=== PATIENT | male | born 1980 | race Caucasian/White ===

== ENCOUNTER 2016-10-31 11:48 | Observation (INO) | payer MEDICAID, OTHER ==
[2016-10-31] MEDS ORDERED: PANTOPRAZOLE SODIUM 80 MG in NORMAL SALINE 100 ML IV ONE (12:02)
[2016-10-31] MEDS ORDERED: RINGERS SOLUTION,LACTATED 1,000 ML IV PRN ×2 (12:02→14:00)
[2016-10-31] MEDS ORDERED: LORazepam 2 MG/ML DISP.SYRIN IV ONE (12:07)
--- NOTE | 2016-10-31 12:07 | ERNOTE ---
Medical Problem HPI - Narrative Date of Service: 10/31/16 - General Chief Complaint: Nausea/Vomiting Time Seen by Provider: 10/31/16 11:56 Source: patient Exam Limitations: clinical condition - Immun/Allergies/Home Medications Immunizations: IMMUNIZATION HX Immunizations Up to Date Yes History of Influenza Vaccine No Hx Pneumococcal Vaccination No Allergies/Adverse Reactions: Allergies No Known Allergies Allergy (Verified 10/31/16 11:59) Home Medications: HOME MEDICATIONS Omeprazole Magnesium [Prilosec Otc] 20 mg PO DAILY 10/31/16 [Last Taken Unknown] - History of Present History Narrative: For the last week, multiple times daily, he has been vomiting. Today, it was worse. He can't keep water on his stomach. One hour before coming to the [facility] ER by private car, he vomited gross blood with clots. He just had a grossly blood emesis now in the ER. He also complains of diffuse abdominal pain. He drinks 96 oz or so of hard tea every day. He was in this hospital in April of last year for EGD diagnosed gastritis. Timing: getting worse Severity: moderate Modifying Factors - (Improves): Present: other - nothing Modifying Factors - (Worsens): Present: eating, other - drinking Review of Systems - Review of Systems Constitutional: Present: weakness, malaise EYE: Present: no symptoms reported ENT: Present: no symptoms reported Respiratory: Present: no symptoms reported Cardiology: Present: no symptoms reported Gastrointestinal/Abdominal: Present: See HPI Genitourinary: Present: no symptoms reported Musculoskeletal: Present: no symptoms reported Skin: Present: no symptoms reported Neurological: Present: no symptoms reported Endocrine: Present: no symptoms reported Hematologic/Lymphatic: Present: no symptoms reported Psych: Present: no symptoms reported All Other Systems: All systems neg except as marked - Patient's Past Medical History Patient History - Medical: Alcohol Abuse, Anxiety, Other - gastritis Patient History - Cardiac/Respiratory: No pertinent hx Patient History - Cancer: No Hx of Cancer Patient History - Surgical Procedures: EGD - Family History Mother Family History - Medical: Anxiety Father Family History - Cardiac/Respiratory: Hypertension, Hyperlipidemia - Social History Living Situations: home Smoking Status: Current every day smoker Have you smoked in the past 12 months: Yes Alcohol Use: heavy Drug Use: marijuana Physical Exam - Physical Exam General Appearance: Present: wd/wn, mild distress, thin Eye Exam: Normal inspection: bilateral, PERRL: bilateral, EOMI: bilateral Ears, Nose, Throat: Present: normal ENT inspection, hearing grossly normal Neck: Present: normal inspection, nontender Respiratory: Present: no respiratory distress, lungs clear Cardiovascular/Chest: Present: regular rate, rhythm, no murmur, tachycardia Gastrointestinal/Abdominal: Present: normal bowel sounds, nondistended, soft, no organomegaly, tenderness - epigastrium Back Exam: Present: normal inspection, no CVA tenderness, no vertebral tenderness Extremity Exam: Present: normal inspection, no edema Neurological Exam: Present: alert, oriented, other - anxious Skin Exam: Present: normal color, warm/dry Lymphatic Exam: Present: no adenopathy ED Progress - Results and Orders Patient's Lab Results:: I have reviewed the patient's lab results. - Vital Signs Patient's Vital Signs:: I have reviewed the patient's vital signs. Vital Signs: Vital Signs 10/31/16 11:50 Temperature 35.7 C L Pulse Rate 117 H Respiratory 16 Rate Blood Pressure 98/76 O2 Sat by Pulse 100 Oximetry - EKG EKG read: Interp. by me - sinus tachycardia, LAFB - Progress/Reassessment Chief Complaint: Nausea/Vomiting Progress Note-Subjective: 10/31/16 16:01 We were unable to pass an NG tube down either nostril, there seems to be hard obstruction on either side, so we stopped attempting. We do have a Chavez catheter in place to monitor output. I did speak with Dr. Dumont by telephone , who is on-call for internal medicine, she agreed to admit this patient to an observation bed. Hourly spoke with Dr. Marley, our surgeon on-call, about this patient and will formally consult him now. 10/31/16 16:[address] Marley by phone just now, and he agreed to see the patient in consultation. Departure - Departure Clinical Impression: Upper GI bleeding, Alcohol abuse Disposition: [facility]
[2016-10-31 12:20] LABS: Hematocrit 33.7 % (42.0-52.0); Hemoglobin 11.6 gm/dL (13.5-18.0); Mean Cell Volume 98.5 fl (78-100); Mean Corpuscular Hemoglobin 33.9 pg (27-31); Mean Corpuscular Hgb Conc 34.4 g/dl (32-36); Mean Platelet Volume 9.7 fl (6.0-9.5); Neutrophil # 6.2 K/mm3 (1.3-6.0); Neutrophil % 66.1 % (42-75.0); Platelet Count 74 K/mm3 (150-450); Red Blood Count 3.42 M/mm3 (4.7-6.0); Red Cell Distribution Width 13.5 % (11.5-14.0); White Blood Count 9.4 K/mm3 (4.0-10.5)
[2016-10-31] MEDS ORDERED: LORazepam 2 MG/ML DISP.SYRIN ONE ×2 (12:21→15:57)
[2016-10-31] MEDS ORDERED: SUCRALFATE 1 G/10 ML UDC PO STA (12:21)
[2016-10-31 12:43] LABS: Albumin * 3.2 gm/dl (3.4-5.0); Anion Gap 27.4 mmol/L (6.8-13.8); BUN/Creatinine Ratio 6.9 (9.0-21.6); Bilirubin Direct 1.1 mg/dL (0.0-0.3); Bilirubin, Total 1.8 mg/dL (0.0-1.1); Bilirubin,Indirect 0.7 mg/dL (0.1-0.7); CKMB 0.5 ng/mL (0.0-9.0); Calcium * 8.4 mg/dL (7.9-10.9); Carbon Dioxide 19.3 mmol/L (24-32.6); Estimated Creat Clear 71.1; Potassium 3.7 mmol/L (3.4-4.6); Total Protein 6.5 gm/dL (6.2-8.2)
[2016-10-31 12:44] LABS: Troponin I 0.019 ng/ml (0.00-0.10)
[2016-10-31 12:57] LABS: INR 1.35 INR (0.90-1.10)
[2016-10-31] MEDS ORDERED: FAMOTIDINE 10 MG/ML VIAL IV ONE (14:15)
[2016-10-31] MEDS ORDERED: PHYTONADIONE (VIT K1) 10 MG/ML AMPUL IM ONE (14:49)
[2016-10-31 15:52] LABS: Cocaine Ur Negative (NEGATIVE); Urine Barbiturate Negative (NEGATIVE); Urine Benzodiazepines Negative (NEGATIVE); Urine Opiates Negative (NEGATIVE); Urine PCP Negative (NEGATIVE)
[2016-10-31 15:54] LABS: Urine Appearance Slightly Cloudy; Urine Blood 25 /ul (NEGATIVE); Urine Color Dark Yellow; Urine Protein 100 mg/dL (NEGATIVE); Urine THC Positive (NEGATIVE)
[2016-10-31 15:55] LABS: Urine Bilirubin 3 mg/dl (NEGATIVE); Urine Ketone 5 mg/dL (NEGATIVE); Urine Nitrite Negative (NEGATIVE); Urine RBC 0-5 /hpf (0-5); Urine Urobilinogen Normal (NORMAL); Urine WBC 0-5 /hpf (0-5)
[2016-10-31 15:56] LABS: Urine Bacteria 1+; Urine Mucus Few - 1+
[2016-10-31] MEDS ORDERED: LORazepam 2 MG/ML DISP.SYRIN IV PRN ×3 (16:23)
[2016-10-31] MEDS ORDERED: PANTOPRAZOLE SODIUM 40 MG in NORMAL SALINE 100 ML IV SCH ×2 (16:30→21:00)
[2016-10-31] MEDS ORDERED: DIPHTH,PERTUSS(ACELL),TET VAC 0.5 ML VIAL IM ONE (16:34)
[2016-10-31 16:35] LABS: Magnesium 1.3 mg/dL (1.2-2.8)
[2016-10-31] MEDS ORDERED: FAMOTIDINE IV SCH ×2 (17:00)
[2016-10-31] MEDS ORDERED: DEXTROSE 5% IV SCH ×2 (17:00)
[2016-10-31] MEDS ORDERED: WATER IV SCH ×2 (17:00)
[2016-10-31] MEDS ORDERED: FLU VACC QS2016-17 36MOS UP/PF 60 MCG/0.5 ML DISP.SYRIN IM ONE (17:29)
[2016-10-31] MEDS: ONDANSETRON HCL/PF 2 MG/ML VIAL IV PRN ×2 (18:00→18:01)
[2016-10-31] MEDS ORDERED: ONDANSETRON HCL/PF 2 MG/ML VIAL IV STA (18:24)
[2016-10-31] MEDS ORDERED: METOCLOPRAMIDE HCL 5 MG/ML VIAL IV STA (18:24)
[2016-10-31] MEDS ORDERED: MULTIVIT INFUSN,ADULT 4,VIT K 10 ML, THIAMINE HCL 100 MG in NORMAL SALINE 1,000 ML IV SCH (18:45)
[2016-10-31] MEDS ORDERED: MULTIVIT INFUSN,ADULT 4,VIT K 10 ML, THIAMINE HCL 100 MG in NORMAL SALINE 1,000 ML IV ONE (19:00)
[2016-10-31 19:09] VITALS: BP 99/71
[2016-11-01] MEDS ORDERED: THIAMINE HCL 100 MG/ML VIAL IV SCH (09:00)
--- NOTE | 2016-11-01 15:09 | HP ---
Chief Complaint - Chief Complaint Date of Service: 10/31/16 Time of Service: 18:00 Chief Complaint: vomiting blood for the last one day. History of Present Illness: Patient is a 36-year-old WM with a H/O EtOH abuse who is taking NSAIDs who came into the ER because of vomiting blood with clots and feeling weak for the last 24 hours. He was accompanied by a family member/girlfriend who stated that she will he was not doing well for the last 1 week and was throwing up occasionally and complained of abdominal pain. The patient himself could not give any history as he was intermittently throwing up blood with clots and was sweaty. - Patient's Past Medical History Additional info: PAST MEDICAL HISTORY: Alcohol abuse and taking NSAIDs simultaneously. History of GI bleed in 03/2016 with an EGD done and 04/08/16 which showed pangastritis and CLOtest negative. No evidence of Ree-Alaniz tear/varices. Patient History - Cardiac/Respiratory: No pertinent hx Patient History - Cancer: No Hx of Cancer Patient History - Surgical Procedures: EGD - 2015 - Family History Mother Family History - Medical: Anxiety Father Family History - Cardiac/Respiratory: Hypertension, Hyperlipidemia - Social History Living Situations: home Psych History: Hx of Anxiety, Hx of Depression Smoking Status: Current every day smoker - 1PPD Have you smoked in the past 12 months: Yes Do you dip or chew tobacco: No Smoking Start Date: 10/11/95 Patient requests Smoking Cessation Consult: No Initiate information on Smoking Cessation: Yes Alcohol Use: heavy Drug Use: marijuana - Immunizations Hx Pneumococcal Vaccination: More Information Required to Determine History of Influenza Vaccine: More Information Required to Determine Review Of Systems (GEN) - Review of Systems Generalized/Overall Review: Present: Weakness Cardiac: Absent: Chest Pain Abdominal: Present: Nausea, Vomiting, Hematemesis. Absent: Diarrhea, Melena Allergies/Adverse Reactions: Allergies Allergy/AdvReac Type Severity Reaction Status Date / Time No Known Allergies Allergy Verified 10/31/16 11:59 Home Medications: HOME MEDICATIONS Acetaminophen [Tylenol] 500 mg PO Q6H PRN 10/31/16 [Last Taken Unknown] Ibuprofen/Diphenhydramine HCl [Advil Pm Liqui-Gels] 1 each PO DAILY 10/31/16 [ Last Taken Unknown] Omeprazole Magnesium [Prilosec Otc] 20 mg PO DAILY 10/31/16 [Last Taken Unknown] Exam - Exam Vital Signs: Vital Signs - Last Taken Temp 36.5 C 10/31/16 19:07 Pulse 164 H 10/31/16 19:07 Resp 18 10/31/16 19:07 BP 99/71 10/31/16 19:07 Pulse Ox 100 10/31/16 19:07 Constitutional: Present: Mild distress - unable to give a history, Young, Thin and frail Eye Exam: bilateral eye: PERRL, EOMI Neck: Present: non-tender, trachea midline Respiratory: Present: no respiratory distress, respiratory distress - mild, decreased breath sounds Cardiovascular/Chest: Present: regular rate, rhythm, tachycardia - with HR >150 min Abdomen: Present: soft - Mild tenderness in the midepigastrium, normal bowel sounds. No masses felt. Extremity: Present: normal inspection, no pedal edema Skin Exam: Present: warm/dry, pallor - diminished turgor Neurologic: Present: alert, oriented x 3 Eye contact: Present: cooperative, good eye contact Thoughts: Present: other - not tested Diagnostic Studies: Laboratory Tests 10/31/16 12:04 WBC 9.4 Hgb 11.6 L Hct 33.7 L Plt Count 74 L 10/31/16 12:02 Plasma Sodium 146 H Potassium 3.7 Chloride 103 Carbon Dioxide 19.3 L BUN 10 Creatinine 1.45 H D Est GFR (Non-Af Amer) 59 L D Random Glucose 111 H Total Bilirubin 1.8 H Direct Bilirubin 1.1 H Indirect Bilirubin 0.7 AST 409 H ALT 123 H Amylase 76 Lipase 515 H 10/31/16 12:02 Creatine Kinase 303 H CK-MB (CK-2) 0.5 Troponin I 0.019 10/31/16 12:02 PT 14.0 H INR (Anticoag Therapy) 1.35 H PTT (Benjamin) 28.0 10/31/16 15:37 Urine Opiates Screen Negative Barbiturate Screen Negative Ur Phencyclidine Scrn Negative Urine Amphetamine Negative U Benzodiazepines Scrn Negative Urine Cocaine Screen Negative Urine Marijuana (THC) Positive H 10/31/16 12:15 Ethyl Alcohol 244.0 H Assessment/Plan - Narrative Narrative: 1. Acute GI bleed Due to a combination of EtOH/NSAIDs. Patient having moderate hematemesis with clots. BP occasionally 80/40 with HR about 160-170/m. Currently being transfused with 3 units of packed RBC. Will need FFP 2. Patient may have esophageal varices/ bleeding vessel and arrangements were made to be transferred to the [facility] After discussing with MICU; patient was transported by helicopter to [facility]. 2. Substance abuse: EtOH level 244.0; urine tox screen positive for marijuana; history of nicotine abuse 1 PPD. 3. Abnormal LFTs: Most likely secondary to EtOH. This will serve as both H&P and Discharge Summary. A total of 50 minutes was spent in dictating H&P/discharge summary, talking to family, coordinating care and arranging transfer to [facility].
== END 2016-10-31 19:30 | disposition short-term general hospital (02) ==
LOC: ER 11:48 → MS 16:06 → SCU 18:26
PROVIDERS: ADMIT Internal Medicine; ATTEND Internal Medicine
DX: K92.0 Hematemesis (principal); F10.10 Alcohol abuse, uncomplicated; F12.90 Cannabis use, unspecified, uncomplicated; Z72.0 Tobacco use; R94.5 Abnormal results of liver function studies; Y90.8 Blood alcohol level of 240 mg/100 ml or more
CPT/HCPCS: 36415; 36430; 51702; 80048; 80076; 81001; 82150; 82550; 82553; 83690; 83735; 84484; 85018; 85025; 85610; 85730; 86850; 86900; 93005; 96365; 96367; 96375; 99284; G0378; G0479; G0481; P9016; P9060